=== PATIENT | female | born 1940 | race Caucasian/White ===

== ENCOUNTER 2023-07-09 10:01 | Inpatient (IN) | payer BC, OTHER ==
[~2023-07-09] VITALS: Ht 157.5 cm; Wt 72.7 kg
[2023-07-09 10:31] LABS: Basophils # (auto) 0.1 10 ^3/uL (0-0.2); Eosinophils # (auto) 0.2 10 ^3/uL (0-0.8); Hemoglobin 12.5 g/dL (12.2-16.2); Lymphocytes # (auto) 2.2 10 ^3/uL (0.4-5.4); Monocytes # (auto) 0.7 10 ^3/uL (0-1.3); Nucleated Red Blood Cells % 0.1 %; White Blood Cell 9.9 10^3/uL (4.4-10.8)
[2023-07-09 10:33] LABS: Basophils % (auto) 0.8 % (0.0-2.0); Hematocrit 39.8 % (36.0-46.0); Lymphocytes % (auto) 21.7 % (10.0-50.0); Mean Corpuscular Hemoglobin 25.3 pg (28.0-32.0); Mean Corpuscular Hgb Conc. 31.3 g/dL (32.0-36.0); Monocytes % (auto) 7.3 % (0.0-12.0); Neutrophils # (auto) 6.7 10 ^3/uL (1.6-8.6); Neutrophils % (auto) 68.2 % (37.0-80.0); Red Blood Cells 4.92 10^6/uL (4.0-5.20); Red Cell Distribution Width 19.2 % (11.8-14.3)
[2023-07-09 10:46] LABS: Alanine Aminotransferase 20 U/L (7-40); Albumin 4.2 g/dL (3.2-4.8); Alkaline Phosphatase 137 U/L (46-116); Anion Gap 9 (5-15); Aspartate Aminotransferase 23 U/L (13-40); BUN/Creatinine Ratio 15.3 (10.0-20.0); Bilirubin, Total 0.5 mg/dL (0.2-1.0); Blood Urea Nitrogen 11 mg/dL (9-23); Calcium 10.7 mg/dL (8.5-10.1); Carbon Dioxide 25 mmol/L (20-30); Chloride 105 mmol/L (98-107); Glucose 225 mg/dL (74-106); Sodium 139 mmol/L (136-145)
[2023-07-09 10:47] LABS: Total Protein 7.5 g/dL (5.7-8.2)
[2023-07-09 11:05] LABS: Large Platelets MODERATE; Platelet Estimate Marked
[2023-07-09] MEDS: LABETALOL HCL 5 MG/ML 4ML SYRINGE IV ONE (11:32)
[2023-07-09] MEDS: HYDROcodone-ACET 5/325MG TAB PO ONE (11:51)
[2023-07-09 13:01] VITALS: PULSE 140; RESP 14; O2SAT 97
[2023-07-09] MEDS: DIGOXIN (250MCG/ML) 2 ML AMPULE IV ONE (13:23)
[2023-07-09] MEDS: GABAPENTIN 300 MG CAP PO ONE (14:45)
[2023-07-09] MEDS: ATENOLOL 25 MG TAB PO ONE (14:46)
[2023-07-09] MEDS ORDERED: MORPHINE SULFATE INJ 2 MG/ml SYRG IV PRN (15:00)
[2023-07-09] MEDS ORDERED: NITROGLYCERIN 0.4 MG SL TAB SL PRN (15:00)
[2023-07-09] MEDS: MORPHINE SULFATE INJ 2 MG/ml SYRG IV PRN (15:39)
[2023-07-09 19:30] VITALS: PULSE 97; RESP 16; O2SAT 96
[2023-07-09] MEDS: ONDANSETRON HCL 4 MG/2 ML VIAL IV ONE (20:03)
[2023-07-09 22:23] VITALS: BP 136/68; PULSE 96; RESP 18; TEMP 98.7; O2SAT 96
[2023-07-09] MEDS ORDERED: GABA-339 PO (22:56)
[2023-07-10] VITALS (7 sets, daily range): BP systolic 106–140; BP diastolic 55–72; PULSE 75–104; RESP 17–20; TEMP 97.5–98.5; O2SAT 94–97
[2023-07-10] MEDS: HYDROcodone-ACET 5/325MG TAB PO ONE (02:58)
[2023-07-10 05:47] LABS: Basophils # (auto) 0.1 10 ^3/uL (0-0.2); Eosinophils # (auto) 0.3 10 ^3/uL (0-0.8); Hemoglobin 10.4 g/dL (12.2-16.2); Monocytes # (auto) 0.7 10 ^3/uL (0-1.3); Neutrophils # (auto) 5.3 10 ^3/uL (1.6-8.6)
[2023-07-10 05:50] LABS: Basophils % (auto) 0.8 % (0.0-2.0); Eosinophils % (auto) 3.5 % (0.0-7.0); Hematocrit 32.9 % (36.0-46.0); Lymphocytes # (auto) 2.9 10 ^3/uL (0.4-5.4); Lymphocytes % (auto) 30.8 % (10.0-50.0); Mean Corpuscular Hemoglobin 25.5 pg (28.0-32.0); Mean Corpuscular Hgb Conc. 31.7 g/dL (32.0-36.0); Mean Corpuscular Volume 80.5 fL (80.0-100.0); Monocytes % (auto) 7.9 % (0.0-12.0); Red Blood Cells 4.08 10^6/uL (4.0-5.20); Red Cell Distribution Width 18.9 % (11.8-14.3); White Blood Cell 9.4 10^3/uL (4.4-10.8)
[2023-07-10 06:22] LABS: Alanine Aminotransferase 17 U/L (7-40); Albumin 3.6 g/dL (3.2-4.8); Alkaline Phosphatase 104 U/L (46-116); Anion Gap 8 (5-15); Aspartate Aminotransferase 12 U/L (13-40); BUN/Creatinine Ratio 25.7 (10.0-20.0); Bilirubin, Total 0.3 mg/dL (0.2-1.0); Blood Urea Nitrogen 19 mg/dL (9-23); Calcium 9.6 mg/dL (8.5-10.1); Carbon Dioxide 26 mmol/L (20-30); Chloride 105 mmol/L (98-107); Glucose 185 mg/dL (74-106); Potassium 3.6 mmol/L (3.5-5.1); Sodium 139 mmol/L (136-145); Total Protein 6.2 g/dL (5.7-8.2)
[2023-07-10] MEDS: DIGOXIN 0.125 MG TAB PO SCH (09:26)
[2023-07-10] MEDS: GABAPENTIN 300 MG CAP PO SCH (10:15)
[2023-07-10 10:40] LABS: Urine Bacteria FEW /hpf (None Seen); Urine Blood 1+ /uL (Negative); Urine Budding Yeast MANY /hpf (None Seen); Urine Clarity Ex.Turbid (Clear); Urine Color Light-Orange (Yellow); Urine Mucus MANY (None Seen); Urine Protein, UAD 1+ (Negative); Urine Specific Gravity 1.027 (1.001-1.035); Urine Urobilinogen 2 mg/dL (Negative); Urine WBC 581 /hpf (0 - 5)
[2023-07-10] MEDS: HYDROcodone-ACET 10/325MG TAB PO PRN (11:00)
[2023-07-10] MEDS ORDERED: DILT120T8 PO (11:13)
[2023-07-10] MEDS ORDERED: OMEP20TA PO (11:13)
[2023-07-10] MEDS ORDERED: DAPA1TAB4 PO (11:13)
[2023-07-10] MEDS ORDERED: MEMA1TAB3 PO (11:13)
[2023-07-10] MEDS ORDERED: HYDR-4902 PO (11:13)
[2023-07-10] MEDS ORDERED: GABA-339 PO (11:13)
[2023-07-10] MEDS ORDERED: INSLISPI SC (11:13)
[2023-07-10] MEDS ORDERED: ESTR1TAB6 PO (11:13)
[2023-07-10] MEDS ORDERED: METO-289 PO (11:13)
[2023-07-10] MEDS ORDERED: APIX2.5T PO (11:13)
[2023-07-10] MEDS ORDERED: LORazepam 0.5 MG TAB PO PRN (11:45)
[2023-07-10] MEDS: BACLOFEN 10 MG TAB PO SCH (12:22)
[2023-07-10] MEDS ORDERED: BACLOFEN 10 MG TAB PO SCH (14:00)
[2023-07-10] MEDS ORDERED: APIX5TAB PO (16:18)
[2023-07-10] MEDS ORDERED: DIGO1TAB48 PO (16:18)
[2023-07-10] MEDS ORDERED: BACL10TA PO (16:18)
[2023-07-10] MEDS ORDERED: APIXABAN 5 MG TAB PO SCH (22:00)
== END 2023-07-10 19:18 | disposition home health service (06) | DRG 309 ==
LOC: EDBD 10:01 → ER 10:43 → OVERFLOW 14:59 → TELE-EAST 22:21
PROVIDERS: ADMIT Student in an Organized Health Care Education/Training Program; ATTEND Student in an Organized Health Care Education/Training Program
DX: I48.20 Chronic atrial fibrillation, unspecified (principal); D68.59 Other primary thrombophilia; I50.20 Unspecified systolic (congestive) heart failure; I11.0 Hypertensive heart disease with heart failure; M62.838 Other muscle spasm; G89.29 Other chronic pain; E11.9 Type 2 diabetes mellitus without complications; I95.9 Hypotension, unspecified; Z85.038 Personal history of other malignant neoplasm of large intestine; Z90.49 Acquired absence of other specified parts of digestive tract; Z86.73 Personal history of transient ischemic attack (TIA), and cerebral infarction without residual deficits; Z79.899 Other long term (current) drug therapy; Z79.4 Long term (current) use of insulin
CPT/HCPCS: 36415; 71045; 73030; 80053; 81001; 83036; 84484; 85025; 87081; 93005; 93306; 99291; G0378; J2405; J3490